=== PATIENT | female | born 1980 | race Two or more races ===

== ENCOUNTER 2023-03-03 18:32 | Emergency (ER) | payer OTHER ==
[~2023-03-03] VITALS: Ht 160 cm; Wt 68.3 kg
[2023-03-03 18:49] VITALS: BP 127/81; PULSE 81; RESP 18; TEMP 98.3; O2SAT 98
[2023-03-03] MEDS ORDERED: HYDROcodone-ACET 10/325MG TAB PO ONE (19:00)
[2023-03-03] MEDS ORDERED: IBUP-1454 PO (21:17)
[2023-03-03] MEDS ORDERED: ACET500T58 PO (21:17)
== END 2023-03-03 23:59 | disposition home or self-care (01) ==
LOC: ER 18:32
DX: S80.02XA Contusion of left knee, initial encounter (principal); S09.8XXA Other specified injuries of head, initial encounter; W01.0XXA Fall on same level from slipping, tripping and stumbling without subsequent striking against object, initial encounter; Y93.89 Activity, other specified; Y92.89 Other specified places as the place of occurrence of the external cause; Y99.8 Other external cause status
CPT/HCPCS: 70450; 73562